=== PATIENT | male | born 1980 | race Caucasian/White ===

== ENCOUNTER 2017-09-26 13:32 | Emergency (ER) | payer MEDICAID ==
[~2017-09-26] VITALS: Ht 190.5 cm; Wt 103.9 kg
[2017-09-26 13:34] VITALS: BP 143/95
== END 2017-09-26 14:37 | disposition home or self-care (01) ==
LOC: ED 14:15
DX: J01.00 Acute maxillary sinusitis, unspecified (principal)
CPT/HCPCS: 99283

== ENCOUNTER 2017-10-01 15:45 | Emergency (ER) | payer MEDICAID ==
[~2017-10-01] VITALS: Ht 190.5 cm; Wt 100.8 kg
[2017-10-01 15:52] VITALS: BP 147/97
[2017-10-01] MEDS ORDERED: DEXAMETHASONE 4 MG TABLET PO STA (16:19)
[2017-10-01] MEDS ORDERED: DEXAMETHASONE 4 MG TABLET ONE (16:22)
== END 2017-10-01 16:46 | disposition home or self-care (01) ==
LOC: ED 16:16
DX: J01.10 Acute frontal sinusitis, unspecified (principal); J01.00 Acute maxillary sinusitis, unspecified
CPT/HCPCS: 99283